=== PATIENT | female | born 1945 | race Caucasian/White ===

== ENCOUNTER 2018-11-04 15:26 | Outpatient (CLI) | payer BC, MEDICARE ==
--- NOTE | 2018-11-04 15:53 | RAD ---
RIGHT FEMUR 2 VIEWS: HISTORY: Right lower extremity pain FINDINGS: The right femur is intact.
--- NOTE | 2018-11-04 16:15 | RAD ---
RIGHT HIP 11/04/18 Two views. HISTORY: Hip pain and leg pain. There are mild degenerative changes at the hip. Mild spurring from the femoral head. No fracture or a cute abnormality. IMPRESSION: Mild degenerative changes at right hip. POS: [facility]
--- NOTE | 2018-11-04 16:19 | ULT ---
US Venous Doppler Rt Unilat HISTORY:Right leg pain and edema. COMPARISON: None. FINDINGS: Real-time color Doppler evaluation right lower extremity was performed to include the commo n femoral superficial and profunda femoral saphenous popliteal and posterior tibial veins. This shows a patent deep venous system. There is normal compressibility and augmentation. IMPRESSION: No evidence of DVT of the right lower extremity.
== END 2018-11-04 15:27 | disposition home or self-care (01) ==
LOC: ULT 15:26
PROVIDERS: ATTEND Nurse Practitioner Family
DX: M79.604 Pain in right leg (principal); R60.0 Localized edema; M25.551 Pain in right hip